=== PATIENT | male | born 1985 | race Caucasian/White ===

== ENCOUNTER 2018-03-09 23:45 | Emergency (ER) | payer OTHER, BC ==
[~2018-03-09] VITALS: Ht 182.9 cm; Wt 86.2 kg
[2018-03-10] MEDS ORDERED: AUGMENTIN 875-1 EACH PO (01:15)
== END 2018-03-10 01:28 | disposition home or self-care (01) ==
LOC: ED 23:45
DX: S61.250A Open bite of right index finger without damage to nail, initial encounter (principal); Z23 Encounter for immunization; W50.3XXA Accidental bite by another person, initial encounter
CPT/HCPCS: 90471; 90715; 99283-25

== ENCOUNTER 2019-07-02 15:05 | Emergency (ER) | payer OTHER, BC ==
[~2019-07-02] VITALS: Ht 182.9 cm; Wt 86.2 kg
[~2019-07-02 15:05] MED LIST: AUGMENTIN 875-1 EACH PO
== END 2019-07-02 16:47 | disposition home or self-care (01) ==
LOC: ED 15:05
DX: S20.211A Contusion of right front wall of thorax, initial encounter (principal); W01.0XXA Fall on same level from slipping, tripping and stumbling without subsequent striking against object, initial encounter
CPT/HCPCS: 71101; 99283-25

== ENCOUNTER 2021-12-21 05:58 | Day surgery (SDC) | payer BC ==
[~2021-12-21] VITALS: Ht 182.9 cm; Wt 88.6 kg
--- NOTE | 2021-12-21 07:25 | NUR ---
VISITED WITH PT PRIOR TO SURGERY. WAS PRESENT. PT EXPRESSED BEING READY TO GET THIS DONE. PT AND EXPRESSED FEELING COMFORTABLE WITH THE PROCEEDURE. PRAYED WITH PT AND .
--- NOTE | 2021-12-21 09:34 | NUR ---
12/21/21 0934 Zainab Sanchez 0946 PATIENT ARRIVES TO PACU UNRESPONSIVE TO VERBAL STIMULI. RESP EVEN AND UNLABORED, MASK AT [address]AY IN PLACE.
[2021-12-21] MEDS ORDERED: IBUPROFEN600 MG PO (09:43)
[2021-12-21] MEDS ORDERED: OXYCODON-ACETA1 EAC2 PO (09:44)
[2021-12-21] MEDS ORDERED: ACETAMINOPHEN500 MG PO (09:44)
--- NOTE | 2021-12-21 10:09 | NUR ---
PT IS BACK TO FROM PACU. HE IS REPORTING MINIMAL PAIN. HE IS TOLERATING SIPS OF WATER. IS AT THE BEDSIDE. CALL LIGHT WITHIN REACH. NO ADDITIONAL NEEDS OR CONCERNS AT THIS TIME.
--- NOTE | 2021-12-21 10:52 | NUR ---
NELLY 1047: PT IS ASSISTED UP OOB WITH STANDBY ASSIST TO THE BATHROOM, WHERE HE IS ABLE TO VOID 300MLS. HE IS ABLE TO AMBULATE HIMSELF BACK TO HIS ROOM. HE IS TOLERATING WATER AND CRACKERS. HE REQUESTS MORE WATER AND CRACKERS.
--- NOTE | 2021-12-21 11:25 | NUR ---
LE 1105: PT HAS MET ALL DC CRITERIA AT THIS TIME. HE INDICATES THAT HE WOULD LIKE TO GO HOME. HE IS EDUCATED ON HOW TO BEST DRESS HIMSELF, THEN TO OPEN HIS CURTAIN WHEN HE IS READY TO GO HOME. LE 1110: PT IS GIVEN VERBAL AND WRITTEN DC INSTRUCTIONS WITH HIS PRESENT. PT AND HAVE NO QUESTIONS AT THIS TIME. HE IS TAKEN TO PERSONAL VEHICLE VIA WC, HE IS ABLE TO TRANSFER HIMSELF FROM WC TO PERSONAL VEHICLE.
--- NOTE | 2021-12-21 19:03 | OR ---
[facility] [address], [place] [address] Signed DATE OF OPERATION: 12/21/2021 SURGEON: Deepak Brown MD PREOPERATIVE DIAGNOSIS: Right inguinal hernia. POSTOPERATIVE DIAGNOSIS: Right direct inguinal hernia. PROCEDURE: Repair of right direct inguinal hernia with implantation of Prolene mesh underlay technique. ANESTHESIA: General LMA, Mickey Ferreira CRNA and local 20 mL of 0.25% Marcaine with epinephrine. 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 He was found to have a reducible right inguinal hernia. He is admitted at this time to undergo repair of the right inguinal hernia. He understands the risk of bleeding, infection, recurrence and so on. He also understands the risk of possible chronic pain syndrome and other issues related to repair and wished to proceed. FINDINGS: A direct defect was noted. There was no sign of indirect sac. Implantation of Prolene mesh in the properitoneal space was undertaken to accomplish repair. An ilioinguinal nerve branch was easily identified and preserved. There was no encumbrance of the nerve at conclusion of the procedure. Cord structures were normal. DESCRIPTION OF PROCEDURE: The patient was brought to the operating room, given a general LMA type anesthetic. The lower abdomen was clipped and prepared with a chlorhexidine solution and draped sterilely. A small incision was made cephalad to the pubic tubercle along the line of skin tension in the right groin area. Dissection was carried through the subcutaneous tissue with electrocautery. The ilioinguinal nerve branch was identified and secured with hemostats and divided and secured with 2-0 Vicryl ties. Further dissection external oblique fascia. This was incised along its fibers through the external ring. The external oblique was dissected free from the underlying fibers of the cord. Cord structures were found to be normal. An ilioinguinal nerve branch was Electronically Signed By: DEEPAK BROWN MD 12/21/21 1903 PATIENT NAME: ADRIANA GRIGGS OPERATIVE REPORT DATE OF : 83 REPORT #: [id number] PHYSICIAN: DEEPAK BROWN MD PCP: LYNN SEO PAC REPORT IS CONFIDENTIAL AND NOT TO BE RELEASED WITHOUT AUTHORIZATION [facility] [address], [place] [address] Signed identified and dissected free and reflected inferiorly around the external oblique. The cord was then mobilized from the floor with all due care using blunt dissection and encircled with a Wakefield drain. Examination of the floor showed a direct hernia defect. Careful dissection proximal in the region of the cord confirmed the finding of no indirect hernia sac. An Allis clamp was applied to the tendon of the transversus abdominis. Using electrocautery, the attenuated fibers of the fascia transversalis were incised and using blunt dissection the properitoneal fat was . The segment of Prolene mesh was cut to an elliptical configuration and secured in an underlay technique with interrupted 2-0 Prolene sutures. A defect was cut in the graft to accommodate the cord. The tails of the graft were secured laterally with extreme care to avoid encumbrance of the ilioinguinal nerve or other structures. A 20 mL of 0.25% Marcaine with epinephrine was injected locally. The inguinal nerve and cord structures were placed into the canal. The external oblique reapproximated with running 2-0 Vicryl suture. Ishaan's layer was reapproximated with interrupted 3-0 Vicryl and the skin was closed using running subcuticular 3-0 Vicryl. Steri-Strips were applied as was Acticoat dressing. The patient tolerated the procedure well. BLOOD LOSS: Minimal. COMPLICATIONS: None. Sponge, needle and instrument counts were reported as correct x3. MD LEXA Rosenberg/SAMUELL /[id number] cc: Lynn Seo PA-C Electronically Signed By: DEEPAK BROWN MD 12/21/21 1903 PATIENT NAME: ADRIANA GRIGGS OPERATIVE REPORT DATE OF : 83 REPORT #: [id number] PHYSICIAN: DEEPAK BROWN MD PCP: LYNN SEO REPORT IS CONFIDENTIAL AND NOT TO BE RELEASED WITHOUT AUTHORIZATION [facility] [address] [place] [address] [place] [address] Signed Copies: LYNN SEO ~ Electronically Signed By: DEEPAK BROWN MD 12/21/21 1903 PATIENT NAME: ADRIANA GRIGGS ALEXANDR OPERATIVE REPORT DATE OF : 83 REPORT #: [id number] PHYSICIAN: DEEPAK BROWN MD PCP: LYNN SEO PAC REPORT IS CONFIDENTIAL AND NOT TO BE RELEASED WITHOUT AUTHORIZATION
== END 2021-12-21 11:16 | disposition home or self-care (01) ==
LOC: DS 05:58
PROVIDERS: ATTEND Surgery
PROC: 0YU50JZ Supplement Right Inguinal Region with Synthetic Substitute, Open Approach (ICD-10-PCS; principal; 2021-12-21 07:30)
DX: K40.90 Unilateral inguinal hernia, without obstruction or gangrene, not specified as recurrent (principal); Z86.16 Personal history of COVID-19
CPT/HCPCS: C1781; J0131; J0690; J1100; J1644; J1885; J2001; J2250; J2405; J2704; J3010; J7121